=== PATIENT | male | born 1955 | race Caucasian/White ===

== ENCOUNTER → 2017-03-22 | Outpatient (CLI) | payer OTHER, MEDICAID | END | disposition home or self-care (01) | LOC: RD 11:20 | DX: M25.562 Pain in left knee (principal) ==

== ENCOUNTER → 2019-02-25 | Outpatient (CLI) | payer OTHER, MEDICAID | END | disposition home or self-care (01) | LOC: RD 11:10 | DX: M53.3 Sacrococcygeal disorders, not elsewhere classified (principal) ==